=== PATIENT | male | born 1965 | race Caucasian/White ===

== ENCOUNTER 2016-12-16 21:16 | Inpatient (IN) | payer BC ==
--- NOTE | ~2016-12-16 | CN ---
Consultation Report [facility] [address] [place]. [address] NAME: JOSHUA VASQUEZ : 63 STATUS : ADM IN PAT#: [id number] AGE: 51 ADM/REG DATE : 12/16/16 MR#: [id number] REPORT SERV DATE: 12/17/16 DICTATED BY: LAMONT GAVIRIA DATE: 12/16/16 REPORT STATUS : Draft TRANSCRIBED BY: MODL DATE: 12/16/16 GI CONSULT REGARDING DYSPHAGIA AND ABNORMAL CT SCAN. DATE OF CONSULTATION: 12/16/2016 HISTORY OF PRESENT ILLNESS: This is a 51-year-old man, patient of Dr. Davalos, who presented to [facility] today with profound dysphagia, question food impaction. He had CT scan done, which showed pneumo-mediastinotomy, was thus transferred here for further evaluation and management. He continues with epigastric and lower chest discomfort. He was eating a sandwich earlier today and felt as though he had a difficult food bolus, which passed the mid esophagus and then felt lodged at the GE junction. Since that time, he felt like he may have passed, but he is not quite sure. He has had no hematemesis, no melena or hematochezia. No lower abdominal pain. Stools have been normal. He has a history of Schatzki ring with dilation. MEDICAL HISTORY: GERD and Schatzki ring status post dilation. ALLERGIES: CLINDAMYCIN, PENICILLIN, AND SULFA. MEDICATIONS AT HOME: Pepcid as needed. SOCIAL HISTORY: Does not use alcohol or tobacco significantly. FAMILY HISTORY: Negative for GI malignancy. REVIEW OF SYSTEMS: A complete review of systems was obtained and negative except that noted in the history of present illness. PHYSICAL EXAMINATION: VITAL SIGNS: He is currently afebrile. Pulse is 100. Blood pressure is normal. HEENT: Sclerae anicteric. NECK: Supple without lymphadenopathy. Pharynx is pink without exudate. LUNGS: Clear to auscultation bilaterally. HEART: Regular rate and rhythm. S1 and S2 heard without rubs or gallops. ABDOMEN: Normal bowel sounds. Belly is soft, nontender, nondistended without hepatosplenomegaly. EXTREMITIES: No pedal edema or rash. NEUROLOGIC: Alert and oriented without focal deficit. Muscle exam is nontender. There is no crepitus over the anterior chest wall. LABORATORY DATA: White blood cell count is 23.9, hematocrit 54.3, and platelets 287. BUN is 12, creatinine 1.17, and bilirubin 1.3. Other liver tests are normal. Lipase is normal. CT scan of chest with Gastrografin shows no esophageal leak. There is mediastinal air along Consultation Report [place] [id number] [address] NAME: JOSHUA VASQUEZ : 63 STATUS : ADM IN PAT#: [id number] AGE: 51 ADM/REG DATE : 12/16/16 MR#: [id number] REPORT SERV DATE: 12/17/16 DICTATED BY: LAMONT GAVIRIA DATE: 12/16/16 REPORT STATUS : Draft TRANSCRIBED BY: HUMAIRA DATE: 12/16/16 the course of the esophagus and up into the thyroid bed. There is also what is thought to be submucosal dissected air throughout the length of the esophagus to within 5 cm of the GE junction. Gastrografin passes into the stomach. There is no complete obstruction. There may or may not be food debris within the esophagus. IMPRESSION: Profound dysphagia with food bolus, although no obstruction. Complicated by likely esophageal tear and midthoracic esophagus along with pneumomediastinum and dissected air throughout the length of the esophagus. RECOMMENDATIONS: 1. Protonix drip and hyoscyamine for esophageal spasm. 2. Antibiotics, broad spectrum. 3. N.p.o. 4. EGD later date. Observation for now. It is thought that risk of endoscopy is greater than benefit at this point given the pneumomediastinum, esophageal tear, and dissected air throughout the length of the esophagus. I feel that he is very high risk for complication. In addition, there was no complete obstruction and that the Gastrografin makes it all the way into the stomach. 5. Discussed this case with Dr. Davalos and Dr. Blount, who both agree with management. I also discussed this with the patient and family. They agree observation for now. CC/HUMAIRA Lamont Gaviria M.D. / [id number] CC: Sherron Cuba M.D.
--- NOTE | ~2016-12-16 | IDS ---
Interim Discharge Summary [facility] [address] [place]. [address] NAME: JOSHUA VASQUEZ : 63 STATUS : ADM IN PAT#: [id number] AGE: 51 ADM/REG DATE : 12/16/16 MR#: [id number] REPORT SERV DATE: 12/20/16 DICTATED BY: RAMSEY BETH IV DATE: 12/20/16 REPORT STATUS : Draft TRANSCRIBED BY: MODTangela DATE: 12/20/16 ADMISSION DATE: 12/16/2016 DISCHARGE DATE: DATE OF TRANSFER TO THE FLOOR: 12/20/2016. ADMITTING DIAGNOSES: 1. Esophageal tear associated with fluid bolus, obstruction, and retching. 2. Esophagitis with gastroesophageal reflux disease and history of Schatzki ring. 3. Diarrhea likely medication related, however, C diff toxin level pending. 4. Electrolyte abnormalities being corrected. 5. Clinical obstructive sleep apnea requiring outpatient evaluation. 6. Borderline hypertension with hydralazine p.r.n. CONSULTANTS: Gastroenterology, who continues to follow the patient. PROCEDURES: The patient underwent a Gastrografin swallow, chest CT scan on 12/16 demonstrating moderate air in the esophageal wall with what appeared to be a mucosal tear with some pneumomediastinum, however, no extravasation of contrast outside of the esophagus. The patient underwent a Gastrografin swallow on 12/19 demonstrating no extravasation of contrast outside of the esophagus with a chest CT scan at the same time demonstrating esophageal wall thickening in the lower third of the esophagus with resolution of the esophageal air and no pneumomediastinum with no evidence for abscess as well. CURRENT MEDICATIONS: The patient is on Flagyl 500 mg q.12 hours, Maxipime 1 g q.6 hours, Protonix drip, and Lovenox 40 mg daily. HOSPITAL COURSE: The patient presented to the emergency room on 12/16 after eating a sandwich and having it feel like it had stuck midway through his chest. He had dysphagia and some retching. The Gastrografin swallow with chest CT scan was noted above. The patient was treated conservatively placed on antibiotics to include cefepime, Flagyl, and vancomycin. He was placed on Protonix drip. Gastroenterology was consulted. They recommended following the patient conservatively. The case was discussed with CT Surgery as well, who felt that no intervention was required at this time. The patient was treated with IV hydration. Under observation, the patient had improvement of his symptoms. Continued to have some midesophageal discomfort. The patient underwent repeat studies on the 6th demonstrating improvement in the appearance of the esophagus with again no extravasation. The patient had an elevated white blood cell count on presentation at 23,700, which now has improved to 10.1. The patient had an elevated procalcitonin level, which will be repeated tomorrow. He did develop some diarrhea after the Gastrografin study, which may be drug related, however, a C diff toxin titer is pending. He was initiated on clear liquids, which he has tolerated with further advancement of diet per Gastroenterology. He had not required supplemental oxygen and was hemodynamically stable, so it was thought he was stable for transfer to the floor. Historically, he has a history consistent with obstructive sleep apnea and requires an outpatient sleep evaluation. He had predominantly hypophosphatemia, which has been replaced on several occasions and will need to be followed. We will ask Interim Discharge Summary [address] [place]. [address] NAME: JOSHUA VASQUEZ : 63 STATUS : ADM IN PAT#: [id number] AGE: 51 ADM/REG DATE : 12/16/16 MR#: [id number] REPORT SERV DATE: 12/20/16 DICTATED BY: RAMSEY BETH IV DATE: 12/20/16 REPORT STATUS : Draft TRANSCRIBED BY: HUMAIRA DATE: 12/20/16 Hospitalist Service to assume primary responsibilities. JESUS MANUEL/HUMAIRA Ramsey Beth IV, M.D. / [id number] CC: Sherron Cuba M.D.
--- NOTE | ~2016-12-16 | DS ---
Discharge Summary [facility] [address] [place]. [address] NAME: JOSHUA VASQUEZ : 63 STATUS : DIS IN PAT#: [id number] AGE: 51 ADM/REG DATE : 12/16/16 MR#: [id number] REPORT SERV DATE: 12/22/16 DICTATED BY: CHRISTY VIERA DATE: 12/22/16 REPORT STATUS : Draft TRANSCRIBED BY: HUMAIRA DATE: 12/22/16 ADMISSION DATE: 12/16/2016 DISCHARGE DATE: 12/22/2016 CONSULTING PHYSICIANS: Dr. Beth for Critical Care; Dr. Hopper for GI; Outpatient GI, Dr. Davalos. FINAL DIAGNOSES: 1. Esophageal tear, esophagitis. 2. History of Schatzki ring and gastroesophageal reflux disease. 3. Diarrhea, resolved. 4. Possible obstructive sleep apnea. 5. Hypertension. 6. Hypophosphatemia. HOSPITAL COURSE: Please refer to the H and P done by Dr. Blount on 12/17/2016 and interim discharge summary done by Dr. Beth. Since I took care of this patient, the patient has been transferred out of the intensive care unit and is feeling much better. However, he continued having nausea and vomiting since he got out. The pain that he has been having is nothing compared to when he first came in, and I discussed this with the GI person and the patient, and they believe that this is not an extension of his tear, as if it is, then he would be having much severe pain like the one he came in with an. The patient believes that it is because of his sinuses that he has been having a problem with, so I started him on Flonase. His vomiting eventually stopped. His pain decreased. He continues to have some nausea. He said that he rather go home and continue his conservative management there rather than stay here. He believes that the stress and the comfort of the home would make him feel better. He has a history of high blood pressure and it seems to be elevated while he was here. He said he used to take ramipril, but stopped taking it when he started exercising. He believes that his elevated blood pressure is secondary to his medical problems. At present, we been giving him some hydralazine p.r.n. We discussed about putting him back on his regular ramipril 5 mg dose, but I would defer to him, his blood pressure might become better once he gets home, I advised him to get a blood pressure monitoring device, and also with his esophageal tear, he might not be able to tolerate too much medications by mouth anyway. He also was seen to have a possible sleep apnea while he was in the critical care unit and he worked as a respiratory therapist and he understands this, he might need to have an outpatient sleep study once he gets better. The patient will now be discharged with the above diagnosis. He will get a prescription for ramipril 5 mg a day, Zofran 4 mg p.o. q.6 hours p.r.n. nausea and vomiting and Protonix 40 mg twice a day which he will need to be on indefinitely for now until he follows up with his GI doctor, Dr. Davalos, in three to four weeks, in which, he might need an EGD at that time when they are here if he has healed. He needs to follow up with his PCP, Jess Oates as well in one to two weeks. This has been explained to the patient at length. He agreed and understood the plan. TIME SPENT: 40 minutes. Discharge Summary [address] [place]. [address] NAME: JOSHUA VASQUEZ : 63 STATUS : DIS IN PAT#: [id number] AGE: 51 ADM/REG DATE : 12/16/16 MR#: [id number] REPORT SERV DATE: 12/22/16 DICTATED BY: CHRISTY VIERA DATE: 12/22/16 REPORT STATUS : Draft TRANSCRIBED BY: HUMAIRA DATE: 12/22/16 DICTATED BY: Sherron Frausto/HUMAIRA Christy Viera M.D. / [id number] CC: Sherron Cuba KERRY D.
--- NOTE | ~2016-12-16 | HP ---
History And Physical [place] [address] [place]. [address] NAME: JOSHUA VASQUEZ : 63 STATUS : ADM IN [facility]#: [id number] AGE: 51 ADM/REG DATE : 12/16/16 MR#: [id number] REPORT SERV DATE: 12/17/16 DICTATED BY: MAYO BLOUNT DATE: 12/16/16 REPORT STATUS : Draft TRANSCRIBED BY: MODL DATE: 12/16/16 DATE OF ADMISSION: 12/16/2016 REASON FOR ADMISSION: Chest pain and pneumomediastinum. The patient was transferred from [facility] for further evaluation for possible esophageal tear. HISTORY OF PRESENT ILLNESS: Mr. Vasquez is a 51-year-old man with a history of hiatal hernia and prominent esophagogastric ring with previous history of dysphagia and obstruction. He was eating lunch earlier today and felt that there was food bolus that became impacted. He had tried to swallow, but kept retching, having substernal pain and nausea. He was seen at [facility] and had an abnormal CT scan of the chest, which will be discussed below. He is still having chest pain though that is again still the same sensation that he had with choking, and choking sensation. No recent fevers, chills, night sweats. PAST MEDICAL HISTORY: Significant for hiatal hernia, Schatzki esophagogastric ring, previous choking episodes. ALLERGIES: HE HAS A HISTORY OF ALLERGIES TO PENICILLIN, CLINDAMYCIN, AND SULFA. REVIEW OF SYSTEMS: Review of 10 systems was performed and is positive for what was noted above. PHYSICAL EXAMINATION: GENERAL: On exam, he is awake and alert. He appears restless and uncomfortable, but in no respiratory distress. VITAL SIGNS: Stable. HEENT: Normocephalic and atraumatic. NECK: Supple with no lymphadenopathy and no JVD. CHEST: Symmetric with good expansion bilaterally. LUNGS: Clear to auscultation and percussion bilaterally. CARDIOVASCULAR: He has S1 and S2, which are regular rate and rhythm. ABDOMEN: Benign. EXTREMITIES: He has no edema. No clubbing. No cyanosis. ASSESSMENT AND PLAN: Food bolus impaction: He has either some mucosal tear with debris or still food debris on his esophagus in the CT scan. However, Gastrografin passed around that and was on the stomach with no extravasation of contrast in the chest. It appears that he has not had a transmural tear, which is very reassuring, but does have pneumomediastinum, which again is probably from the retching and the high heaving. We have started him on empiric antibiotic therapy in case he has a small tear with a very small leak, which would put him at high risk with mediastinitis. We have discussed the case both with Dr. Faizan Adams and Dr. Lamont Gaviria, who saw the patient tonight as well. We have reviewed the images together and with Radiology, and the plan is for conservative management tonight with antibiotics and the patient will remain n.p.o. Care was discussed with the patient and with the golf tournament consultant services. History And Physical [address] [address] NAME: JOSHUA VASQUEZ : 63 STATUS : ADM IN PAT#: [id number] AGE: 51 ADM/REG DATE : 12/16/16 MR#: [id number] REPORT SERV DATE: 12/17/16 DICTATED BY: MAYO BLOUNT DATE: 12/16/16 REPORT STATUS : Draft TRANSCRIBED BY: HUMAIRA DATE: 12/16/16 ROLANDA/HUMAIRA Mayo Blount M.D. / [id number] CC: Mayo Blount M.D.
[2016-12-17 00:09] LABS: HEMATOCRIT 48.7 % (40.0-51.0); HEMOGLOBIN 17.5 g/dL (13.6-17.8); MEAN CORPUS HGB CONC 35.9 g/dL (32.0-36.0); MEAN CORPUSCULAR HEMOGLOB 33.3 pg (26.0-34.0); MEAN CORPUSCULAR VOLUME 92.8 fL (80-100); MEAN PLATELET VOLUME 10.5 fL (9.2-13.0); PLATELET COUNT 216 10/3/uL (150-400); RED CELL COUNT 5.25 10/6/uL (4.7-6.1); WHITE BLOOD CELLS 24.1 10/3/uL (4.5-10.5)
[2016-12-17 00:11] LABS: MANUAL DIFF YES %
[2016-12-17 00:13] LABS: BUN (BLOOD UREA NITROGEN) 14 MG/DL (6-23); CALCIUM, SERUM 8.8 MG/DL (8.5-10.4); CHLORIDE, SERUM 108 MMOL/L (96-112); CO2 (CARBON DIOXIDE) 26 MMOL/L (24-34); CREATININE 1.25 MG/DL (0.70-1.30); GFR AFRICAN AMERICAN 76 ML/MIN (>=60); GFR NON AFRICAN AMERICAN 66 ML/MIN (>=60); GLUCOSE, SERUM 150 MG/DL (60-99); POTASSIUM, SERUM 4.4 MMOL/L (3.5-5.3); SODIUM, SERUM 141 MMOL/L (135-148)
[2016-12-17 00:46] LABS: PROCALCITONIN 7.92 ng/mL (<0.5)
[2016-12-17 01:14] LABS: BAND NEUTROPHILS 9 %; PLATELET ESTIMATE ADQ (ADEQUATE); RBC MORPHOLOGY NORM (NORMAL); SEGMENTED NEUTROPHIL (0) 91 %; TOTAL NUCLEATED CELLS 100
[2016-12-17 03:48] LABS: HEMATOCRIT 47.4 % (40.0-51.0); HEMOGLOBIN 16.6 g/dL (13.6-17.8); MANUAL DIFF YES %; MEAN CORPUSCULAR HEMOGLOB 32.9 pg (26.0-34.0); MEAN PLATELET VOLUME 10.6 fL (9.2-13.0); PLATELET COUNT 195 10/3/uL (150-400); RBC DISTRIBUTION WIDTH 13.2 % (12.0-16.0); RED CELL COUNT 5.04 10/6/uL (4.7-6.1); WHITE BLOOD CELLS 23.7 10/3/uL (4.5-10.5)
[2016-12-17 04:01] LABS: BUN (BLOOD UREA NITROGEN) 14 MG/DL (6-23); CALCIUM, SERUM 8.4 MG/DL (8.5-10.4); CHLORIDE, SERUM 109 MMOL/L (96-112); CO2 (CARBON DIOXIDE) 24 MMOL/L (24-34); CREATININE 1.22 MG/DL (0.70-1.30); GFR AFRICAN AMERICAN 79 ML/MIN (>=60); GFR NON AFRICAN AMERICAN 68 ML/MIN (>=60); GLUCOSE, SERUM 140 MG/DL (60-99); POTASSIUM, SERUM 4.5 MMOL/L (3.5-5.3); SODIUM, SERUM 141 MMOL/L (135-148)
[2016-12-17 04:22] LABS: BAND NEUTROPHILS 5 %; LYMPHOCYTES 2 %; LYMPHOCYTES ABSOLUTE (CALC) 0.47 10/3/uL (0.67-4.30); MONOCYTES 1 %; MONOCYTES ABSOLUTE (CALC) 0.24 10/3/uL (0.21-1.20); NEUTROPHILS ABSOLUTE (CALC) 22.99 10/3/uL (2.02-8.40); PLATELET ESTIMATE ADQ (ADEQUATE); RBC MORPHOLOGY NORM (NORMAL); SEGMENTED NEUTROPHIL (0) 92 %; TOTAL NUCLEATED CELLS 100
[2016-12-18 03:58] LABS: BASOPHILS 0.1 %; BASOPHILS ABSOLUTE 0.02 10/3/uL (0.0-0.16); EOSINOPHILS 0.4 %; EOSINOPHILS ABSOLUTE 0.07 10/3/uL (0.0-0.53); HEMATOCRIT 45.6 % (40.0-51.0); HEMOGLOBIN 15.6 g/dL (13.6-17.8); IMMATURE GRANULOCYTES 0.2 %; IMMATURE GRANULOCYTES ABSOLUTE 0.04 10/3/uL (0.0-0.11); LYMPHOCYTES 6.1 %; LYMPHOCYTES ABSOLUTE 1.02 10/3/uL (0.67-4.30); MEAN CORPUS HGB CONC 34.2 g/dL (32.0-36.0); MEAN CORPUSCULAR HEMOGLOB 32.8 pg (26.0-34.0); MEAN PLATELET VOLUME 10.7 fL (9.2-13.0); MONOCYTES 7.8 %; NEUTROPHILS 85.4 %; NEUTROPHILS ABSOLUTE 14.21 10/3/uL (2.02-8.40); PLATELET COUNT 174 10/3/uL (150-400); RBC DISTRIBUTION WIDTH 13.2 % (12.0-16.0); RED CELL COUNT 4.75 10/6/uL (4.7-6.1); WHITE BLOOD CELLS 16.7 10/3/uL (4.5-10.5)
[2016-12-18 04:01] LABS: MANUAL DIFF NO %
[2016-12-18 04:22] LABS: ALBUMIN 3.2 G/DL (3.5-5.0); ALKALINE PHOSPHATASE 49 U/L (45-117); BUN (BLOOD UREA NITROGEN) 15 MG/DL (6-23); CALCIUM, SERUM 8.4 MG/DL (8.5-10.4); CHLORIDE, SERUM 107 MMOL/L (96-112); CO2 (CARBON DIOXIDE) 24 MMOL/L (24-34); CREATININE 1.08 MG/DL (0.70-1.30); GFR AFRICAN AMERICAN 91 ML/MIN (>=60); GFR NON AFRICAN AMERICAN 78 ML/MIN (>=60); GLOBULIN 3.1 G/DL (2.5-4.1); GLUCOSE, SERUM 91 MG/DL (60-99); POTASSIUM, SERUM 4.2 MMOL/L (3.5-5.3); SGOT(AST) 19 U/L (5-40); SGPT(ALT) 22 U/L (5-65); SODIUM, SERUM 137 MMOL/L (135-148); TOTAL BILIRUBIN 1.2 MG/DL (0-1.2); TOTAL PROTEIN 6.3 G/DL (6.0-8.5)
[2016-12-18 11:23] LABS: PHOSPHORUS, SERUM 1.3 MG/DL (2.5-4.5)
[2016-12-18 13:00] LABS: PROCALCITONIN 5.98 ng/mL (<0.5)
[2016-12-19 04:21] LABS: BASOPHILS 0.1 %; BASOPHILS ABSOLUTE 0.01 10/3/uL (0.0-0.16); EOSINOPHILS 0.7 %; EOSINOPHILS ABSOLUTE 0.09 10/3/uL (0.0-0.53); HEMATOCRIT 42.2 % (40.0-51.0); HEMOGLOBIN 14.9 g/dL (13.6-17.8); IMMATURE GRANULOCYTES 0.3 %; IMMATURE GRANULOCYTES ABSOLUTE 0.04 10/3/uL (0.0-0.11); LYMPHOCYTES 5.7 %; LYMPHOCYTES ABSOLUTE 0.76 10/3/uL (0.67-4.30); MEAN CORPUS HGB CONC 35.3 g/dL (32.0-36.0); MEAN CORPUSCULAR HEMOGLOB 33.1 pg (26.0-34.0); MEAN CORPUSCULAR VOLUME 93.8 fL (80-100); MEAN PLATELET VOLUME 10.6 fL (9.2-13.0); MONOCYTES 5.7 %; MONOCYTES ABSOLUTE 0.76 10/3/uL (0.21-1.20); NEUTROPHILS 87.5 %; NEUTROPHILS ABSOLUTE 11.65 10/3/uL (2.02-8.40); PLATELET COUNT 197 10/3/uL (150-400); RBC DISTRIBUTION WIDTH 12.7 % (12.0-16.0); WHITE BLOOD CELLS 13.3 10/3/uL (4.5-10.5)
[2016-12-19 04:22] LABS: MANUAL DIFF NO %
[2016-12-19 04:41] LABS: BUN (BLOOD UREA NITROGEN) 13 MG/DL (6-23); CALCIUM, SERUM 8.1 MG/DL (8.5-10.4); CHLORIDE, SERUM 106 MMOL/L (96-112); CO2 (CARBON DIOXIDE) 27 MMOL/L (24-34); CREATININE 0.93 MG/DL (0.70-1.30); GFR AFRICAN AMERICAN 109 ML/MIN (>=60); GFR NON AFRICAN AMERICAN 94 ML/MIN (>=60); GLUCOSE, SERUM 89 MG/DL (60-99); PHOSPHORUS, SERUM 1.4 MG/DL (2.5-4.5); POTASSIUM, SERUM 3.7 MMOL/L (3.5-5.3); SODIUM, SERUM 137 MMOL/L (135-148)
[2016-12-20 05:03] LABS: BASOPHILS 0.2 %; BASOPHILS ABSOLUTE 0.02 10/3/uL (0.0-0.16); EOSINOPHILS 1.9 %; EOSINOPHILS ABSOLUTE 0.19 10/3/uL (0.0-0.53); HEMATOCRIT 43.8 % (40.0-51.0); HEMOGLOBIN 15.3 g/dL (13.6-17.8); IMMATURE GRANULOCYTES 0.3 %; IMMATURE GRANULOCYTES ABSOLUTE 0.03 10/3/uL (0.0-0.11); LYMPHOCYTES 10.3 %; LYMPHOCYTES ABSOLUTE 1.04 10/3/uL (0.67-4.30); MANUAL DIFF NO %; MEAN CORPUS HGB CONC 34.9 g/dL (32.0-36.0); MEAN CORPUSCULAR HEMOGLOB 32.8 pg (26.0-34.0); MEAN CORPUSCULAR VOLUME 93.8 fL (80-100); MEAN PLATELET VOLUME 10.5 fL (9.2-13.0); MONOCYTES 7.9 %; MONOCYTES ABSOLUTE 0.79 10/3/uL (0.21-1.20); NEUTROPHILS 79.4 %; NEUTROPHILS ABSOLUTE 7.98 10/3/uL (2.02-8.40); PLATELET COUNT 204 10/3/uL (150-400); RED CELL COUNT 4.67 10/6/uL (4.7-6.1); WHITE BLOOD CELLS 10.1 10/3/uL (4.5-10.5)
[2016-12-20 05:25] LABS: A/G RATIO 1.1 (0.7-1.9); ALBUMIN 3.1 G/DL (3.5-5.0); ALKALINE PHOSPHATASE 47 U/L (45-117); BUN (BLOOD UREA NITROGEN) 11 MG/DL (6-23); CALCIUM, SERUM 8.2 MG/DL (8.5-10.4); CHLORIDE, SERUM 106 MMOL/L (96-112); CO2 (CARBON DIOXIDE) 25 MMOL/L (24-34); CREATININE 0.87 MG/DL (0.70-1.30); GFR AFRICAN AMERICAN 115 ML/MIN (>=60); GFR NON AFRICAN AMERICAN 99 ML/MIN (>=60); GLOBULIN 2.7 G/DL (2.5-4.1); GLUCOSE, SERUM 89 MG/DL (60-99); PHOSPHORUS, SERUM 1.3 MG/DL (2.5-4.5); POTASSIUM, SERUM 3.5 MMOL/L (3.5-5.3); SGOT(AST) 15 U/L (5-40); SGPT(ALT) 17 U/L (5-65); SODIUM, SERUM 136 MMOL/L (135-148); TOTAL PROTEIN 5.8 G/DL (6.0-8.5)
[2016-12-20 16:53] LABS: POTASSIUM, SERUM 3.6 MMOL/L (3.5-5.3)
[2016-12-20 16:54] LABS: PHOSPHORUS, SERUM 2.3 MG/DL (2.5-4.5)
[2016-12-21 01:56] LABS: HEMATOCRIT 44.1 % (40.0-51.0); MEAN CORPUS HGB CONC 36.3 g/dL (32.0-36.0); MEAN CORPUSCULAR HEMOGLOB 33.4 pg (26.0-34.0); MEAN CORPUSCULAR VOLUME 92.1 fL (80-100); MEAN PLATELET VOLUME 10.3 fL (9.2-13.0); PLATELET COUNT 235 10/3/uL (150-400); RBC DISTRIBUTION WIDTH 12.5 % (12.0-16.0); RED CELL COUNT 4.79 10/6/uL (4.7-6.1); WHITE BLOOD CELLS 8.5 10/3/uL (4.5-10.5)
[2016-12-21 02:04] LABS: MANUAL DIFF YES %
[2016-12-21 02:16] LABS: ALBUMIN 3.1 G/DL (3.5-5.0); BUN (BLOOD UREA NITROGEN) 10 MG/DL (6-23); CALCIUM, SERUM 8.3 MG/DL (8.5-10.4); CHLORIDE, SERUM 108 MMOL/L (96-112); CO2 (CARBON DIOXIDE) 26 MMOL/L (24-34); CREATININE 0.85 MG/DL (0.70-1.30); GFR AFRICAN AMERICAN 116 ML/MIN (>=60); GFR NON AFRICAN AMERICAN 100 ML/MIN (>=60); GLUCOSE, SERUM 98 MG/DL (60-99); PHOSPHORUS, SERUM 1.9 MG/DL (2.5-4.5); POTASSIUM, SERUM 3.7 MMOL/L (3.5-5.3); SODIUM, SERUM 140 MMOL/L (135-148)
[2016-12-21 02:46] LABS: EOSINOPHILS 2 %; EOSINOPHILS ABSOLUTE (CALC) 0.17 10/3/uL (0.0-0.53); LYMPHOCYTES 11 %; LYMPHOCYTES ABSOLUTE (CALC) 0.94 10/3/uL (0.67-4.30); MONOCYTES 5 %; MONOCYTES ABSOLUTE (CALC) 0.43 10/3/uL (0.21-1.20); NEUTROPHILS ABSOLUTE (CALC) 6.97 10/3/uL (2.02-8.40); PLATELET ESTIMATE ADQ (ADEQUATE); RBC MORPHOLOGY NORM (NORMAL); SEGMENTED NEUTROPHIL (0) 82 %; TOTAL NUCLEATED CELLS 100
[2016-12-21 03:00] LABS: PROCALCITONIN 0.98 ng/mL (<0.5)
[2016-12-22] MEDS ORDERED: ALTA5 PO (10:50)
[2016-12-22] MEDS ORDERED: ZOFRAN4 PO (10:51)
[2016-12-22] MEDS ORDERED: PROTONIX PO (10:51)
[2017-02-26] MEDS ORDERED: PROAIR HFA INH (15:19)
== END 2016-12-22 13:36 | disposition home or self-care (01) | DRG 394 ==
LOC: CCU 21:16 → 4SO 12-20 12:32
PROVIDERS: Internal Medicine Critical Care Medicine; Internal Medicine Pulmonary Disease
PROC: BD15YZZ Fluoroscopy of Upper GI using Other Contrast (ICD-10-PCS; principal; 2016-12-16)
DX: T18.128A Food in esophagus causing other injury, initial encounter (principal); S11.22XA Laceration with foreign body of pharynx and cervical esophagus, initial encounter; K52.1 Toxic gastroenteritis and colitis; R13.10 Dysphagia, unspecified; E83.39 Other disorders of phosphorus metabolism; Z68.41 Body mass index [BMI] 40.0-44.9, adult; I10 Essential (primary) hypertension; K44.9 Diaphragmatic hernia without obstruction or gangrene; Z88.0 Allergy status to penicillin; Z88.1 Allergy status to other antibiotic agents; Z88.2 Allergy status to sulfonamides; G47.33 Obstructive sleep apnea (adult) (pediatric); T50.905A Adverse effect of unspecified drugs, medicaments and biological substances, initial encounter; Y92.009 Unspecified place in unspecified non-institutional (private) residence as the place of occurrence of the external cause; K21.0 Gastro-esophageal reflux disease with esophagitis; R13.19 Other dysphagia; E66.9 Obesity, unspecified
CPT/HCPCS: 71010; 71250; 74220; 80048; 80053; 80069; 80202; 82150; 83036; 83605; 83690; 83735; 84100; 84132; 84145; 85025; 87230; 87493; 87493-59; 87641; A9270-GY; C9113; J0360; J0692; J1170; J1940; J2405; J2550; J3370; J3411